=== PATIENT | female | born 2000 | race African-American/Black ===

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

== ENCOUNTER 2022-02-01 21:59 | Inpatient (IN) ==
[2022-02-01] MEDS ORDERED: METHYLERGONOVINE 0.2 MG/1 ML AMP IM PRN (22:40)
[2022-02-01] MEDS ORDERED: CARBOPROST TROMETHAMINE 250 MCG/ML AMP IM PRN (22:40)
[2022-02-01] MEDS ORDERED: MEPERIDINE 50 MG/1 ML VIAL IV PRN (22:40)
[2022-02-01] MEDS ORDERED: OXYTOCIN/LR 20 UNIT/1,000 ML BAG IV ONE (22:40)
[2022-02-01] MEDS ORDERED: BUTORPHANOL 2 MG/ML VIAL IV PRN (22:40)
[2022-02-01] MEDS ORDERED: ONDANSETRON 4 MG/2 ML VIAL IV PRN (22:40)
[2022-02-01] MEDS ORDERED: miSOPROStoL 200 MCG TABLET RECTAL PRN (22:40)
[2022-02-01] MEDS ORDERED: TRANEXAMIC ACID 1,000 MG in SODIUM CHLORIDE 0.9% 100 ML IV PRN (22:40)
[2022-02-01 22:57] LABS: Basophils % 0.1 % (0.0-0.8); Eosinophils % 0.2 % (0.00-10.9); Hematocrit 35.1 VOL% (35.7-47.0); Hemoglobin 11.2 GM/DL (12.0-16.0); Immature Granulocytes % 1.2 %; Immature Granulocytes Absolute 0.11 #; Lymphocytes % 21.4 % (21.3-54.2); Mean Corpuscular HGB Conc 31.9 GM/DL (32-36); Mean Corpuscular Volume 79.6 FL (87-102); Monocytes # 1.1 10*3/uL (0.11-0.8); Monocytes % 11.5 % (1.7-12.7); Neutrophils % 65.6 % (38.7-73.9); Platelet Count 354 T/CUMM (130-400); Red Blood Count 4.41 MC/CUMM (3.8-5.5); Red Cell Distribution Width 16.1 % (9.3-17.3); White Blood Count 9.3 T/CUMM (4-12)
[2022-02-01 22:59] LABS: Bacteria,Urine Occasional /HPF (Few); Bilirubin,Urine Negative (Negative); Glucose,Urine (UA) Negative (Negative); Ketones,Urine Negative (Negative); Mucus,Urine Occasional /LPF (Occasional); Nitrite,Urine Negative (Negative); Protein,Urine Negative (Negative); RBC,Urine 2 /HPF (0-4); Squamous Epithelial Cell,Urine Moderate /HPF (0-10); Urine Appearance Clear (Clear); Urine Color Yellow (Yellow)
[2022-02-01 23:00] LABS: Blood, Urine Trace mg/dL (Negative); Urine Urobilinogen 0.2 eU/dL (<2.0)
[2022-02-01] MEDS ORDERED: LACTATED RINGERS 1,000 ML IV SCH (23:00)
[2022-02-01 23:26] LABS: Alanine Aminotransferase 15 U/L (13-56); Albumin 2.5 G/DL (3.4-5.0); Alkaline Phosphatase 127 U/L (45-117); Aspartate Amino Transferase 9 U/L (0-37); Bilirubin,Total < 0.39 MG/DL (0.20-1.00); Blood Urea Nitrogen 12 MG/DL (7-18); Calcium 9.1 MG/DL (8.5-10.1); Carbon Dioxide 23 MMOL/L (21-32); Chloride 110 MMOL/L (98-107); Glucose 83 MG/DL (74-106); Osmolality,Calculated 275.5 MOS/KG (273-304); Sodium 139 MMOL/L (136-145); Total Protein 6.8 G/DL (6.4-8.2)
[2022-02-02] MEDS ORDERED: CITRIC ACID/SODIUM CITRATE 30 ML UDCUP PO ONE (05:12)
[2022-02-02] MEDS ORDERED: FAMOTIDINE 20 MG/2 ML VIAL IV ONE (05:12)
[2022-02-02] MEDS ORDERED: ePHEDrine 50 MG/ML VIAL IV PRN (05:12)
[2022-02-02] MEDS ORDERED: LACTATED RINGERS 1,000 ML IV ONE (05:12)
[2022-02-02] MEDS ORDERED: OXYTOCIN/LR 30 UNIT/1,000 ML BAG IV ONE (05:19)
[2022-02-02] MEDS ORDERED: fentaNYL 2 MCG/ROPIV 0.2% EPID 100 ML EPIDURAL SCH (05:30)
[2022-02-02] MEDS ORDERED: CITRIC ACID/SODIUM CITRATE 30 ML UDCUP ONE (05:37)
[2022-02-02] MEDS ORDERED: OXYTOCIN/LR 20 UNIT/1,000 ML BAG IV ONE ×2 (06:10→07:04)
[2022-02-02 06:42] LABS: Cord Venous Blood HCO3 16.2 MMOL/L; Cord Venous Blood PCO2 77.6 MMHG; Cord Venous Blood PO2 17.2
[2022-02-02] MEDS ORDERED: MEASLES/MUMPS/RUBELLA VACCINE 0.5 ML VIAL SUBCUT ONE (07:04)
[2022-02-02] MEDS ORDERED: BISACODYL 10 MG SUPP RECTAL PRN (07:04)
[2022-02-02] MEDS ORDERED: BENZOCAINE 20%/MENTHOL 0.5% SPRAY 56 GM CAN TOP PRN (07:04)
[2022-02-02] MEDS ORDERED: HYDROCORTISONE 2.5% RECTAL CREAM 30 GM TUBE TOP PRN (07:04)
[2022-02-02] MEDS ORDERED: ONDANSETRON 4 MG/2 ML VIAL IV PRN (07:04)
[2022-02-02] MEDS ORDERED: RHO(D) IMMUNE GLOBULIN 300 MCG SYRINGE IM ONE (07:04)
[2022-02-02] MEDS ORDERED: DIPH/TET/ACEL PERT BOOSTER VACCINE 0.5 ML VIAL IM ONE (07:04)
[2022-02-02] MEDS ORDERED: ACETAMINOPHEN 325 MG TABLET PO PRN (07:04)
[2022-02-02] MEDS ORDERED: WITCH HAZEL PADS 100/JAR TOP PRN (07:04)
[2022-02-02] MEDS ORDERED: LANOLIN 50% CREAM 0.3 OZ TUBE TOP PRN (07:04)
[2022-02-02] MEDS: oxyCODONE/ACETAMINOPHEN 5-325 MG TABLET PO PRN ×2 (12:31→18:27)
[2022-02-02] MEDS: IBUPROFEN 800 MG TABLET PO PRN ×2 (12:32→18:27)
[2022-02-02] MEDS: DOCUSATE SODIUM 100 MG CAPSULE PO SCH (22:00)
[2022-02-03] MEDS: oxyCODONE/ACETAMINOPHEN 5-325 MG TABLET PO PRN ×3 (04:20→23:44)
[2022-02-03] MEDS: IBUPROFEN 800 MG TABLET PO PRN ×3 (04:20→20:37)
[2022-02-03 05:10] LABS: Basophils % 0.1 % (0.0-0.8); Eosinophils % 0.5 % (0.00-10.9); Hematocrit 31.9 VOL% (35.7-47.0); Immature Granulocytes % 0.9 %; Immature Granulocytes Absolute 0.08 #; Lymphocytes # 3.2 10*3/uL (1.4-4.0); Mean Corpuscular HGB Conc 31.3 GM/DL (32-36); Mean Corpuscular Volume 82.4 FL (87-102); Monocytes # 0.9 10*3/uL (0.11-0.8); Monocytes % 9.8 % (1.7-12.7); Neutrophils % 51.7 % (38.7-73.9); Platelet Count 287 T/CUMM (130-400); Red Blood Count 3.87 MC/CUMM (3.8-5.5); White Blood Count 8.7 T/CUMM (4-12)
[2022-02-03] MEDS: DOCUSATE SODIUM 100 MG CAPSULE PO SCH ×3 (07:18→20:37)
[2022-02-03] MEDS ORDERED: INFLUENZA VIRUS VACCINE 0.5 ML SYRINGE IM ONE (09:00)
[2022-02-04] MEDS: IBUPROFEN 800 MG TABLET PO PRN ×2 (05:04→11:04)
[2022-02-04 08:00] VITALS: BP 111/71
[2022-02-04] MEDS ORDERED: DIPH/TET/ACEL PERT BOOSTER VACCINE 0.5 ML VIAL IM ONE (10:32)
[2022-02-04] MEDS: DOCUSATE SODIUM 100 MG CAPSULE PO SCH (10:36)
[2022-02-04] MEDS: oxyCODONE/ACETAMINOPHEN 5-325 MG TABLET PO PRN (11:04)
== END 2022-02-04 12:45 | disposition home or self-care (01) | DRG 560 ==
LOC: N.LD 21:59 → N.OB 02-02 09:45
PROVIDERS: ADMIT Obstetrics & Gynecology; ATTEND Obstetrics & Gynecology